=== PATIENT | female | born 1960 | race Caucasian/White ===

== ENCOUNTER → 2016-12-06 | Outpatient (CLI) | payer MEDICARE ==
[~2016-12-06] MED LIST: LIDOCAINE 1%, 20ML ONE; ROPivacaine/PF 0.2%, 10 ML ONE; SODIUM BICARBONATE 4.2%, 5ML ONE; TRIAMCINOLONE ACETONIDE 40 MG/ML, 1ML ONE
== END | disposition home or self-care (01) ==
LOC: RAD 13:14
PROVIDERS: ATTEND Specialist
DX: M16.11 Unilateral primary osteoarthritis, right hip (principal)
CPT/HCPCS: 77002; J2795; J3301; J3490